=== PATIENT | female | born 1995 | race Hispanic/Latino ===

== ENCOUNTER 2018-11-02 22:50 | Emergency (ER) | payer OTHER ==
[~2018-11-02 22:50] MED LIST: ACET1TAB12 PO; DOCU240C80 PO; IBUP-2077 PO; PREN1TAB26 PO
[2018-11-02] MEDS ORDERED: IOHEXOL 350 MG/ML 100ML INFUS..BTL IV ONE (23:20)
[2018-11-03] MEDS ORDERED: ONDANSETRON HCL 4 MG/2 ML VIAL ONE (00:01)
[2018-11-03] MEDS ORDERED: SODIUM CHLORIDE 0.9% 1000ML 1,000 ML IV ONE (00:01)
[2018-11-03] MEDS ORDERED: MORPHINE SULFATE 4 MG/1ML SYG ONE ×2 (00:01→01:46)
[2018-11-03 00:10] LABS: BASOPHILS % (AUTO) 0.2 % (0.0-5.0); EOSINOPHILS % (AUTO) 0.7 % (0.0-8.0); HEMATOCRIT 40.8 % (36-48); LYMPHOCYTES % (AUTO) 8.7 % (21.0-51.0); MEAN CORPUSCULAR HEMOGLOBIN 29.5 pg (27.0-33.0); MEAN CORPUSCULAR HGB CONC 34.6 g/dL (32.0-36.0); MEAN CORPUSCULAR VOLUME 85.2 fL (79-99); MONOCYTES % (AUTO) 6.6 % (3.0-13.0); NEUTROPHILS % (AUTO) 83.8 % (40.0-77.0); PLATELET COUNT (AUTO) 280 K/uL (130-400); RED BLOOD CELL COUNT(AUTO) 4.78 MIL/uL (4.00-5.50); RED CELL DISTRIBUTION WIDTH 14.3 % (11.0-15.5); WHITE BLOOD COUNT (AUTO) 15.2 K/uL (4.8-10.8)
[2018-11-03 00:17] LABS: CREATININE 0.8 mg/dL (0.5-1.5); POTASSIUM 3.5 mmol/L (3.5-5.1)
[2018-11-03 00:27] LABS: ALBUMIN 4.1 g/dL (3.5-5.0); BILIRUBIN,TOTAL 0.4 mg/dL (0.2-1.0); TOTAL PROTEIN, SERUM 7.9 g/dL (6.0-8.3)
[2018-11-03] MEDS ORDERED: KETAMINE HCL 100 MG/ML 5ML VIAL IJ ONE (01:45)
[2018-11-03] MEDS ORDERED: LORAZEPAM 2 MG/ML 1 ML VIAL ONE (02:35)
== END 2018-11-03 03:50 | disposition home or self-care (01) ==
LOC: EDH 22:50
DX: S52.592A Other fractures of lower end of left radius, initial encounter for closed fracture (principal); S20.219A Contusion of unspecified front wall of thorax, initial encounter; Z72.0 Tobacco use; V49.49XA Driver injured in collision with other motor vehicles in traffic accident, initial encounter; Y93.89 Activity, other specified; Y92.89 Other specified places as the place of occurrence of the external cause; Y99.8 Other external cause status
CPT/HCPCS: 25605; 36415; 71260; 73090; 73100; 73130; 74177; 80053; 82550; 83690; 84484; 84702; 85025; 93005; 96374; 96375; 96376; 99152; 99153; 99285; J2060; J2270 ×2; J2405; J3490; J7030; Q9967

== ENCOUNTER 2019-02-24 20:43 | Emergency (ER) | payer SELFPAY ==
[2019-02-24 21:56] LABS: APPEARANCE,URINE Clear (CLEAR); BILIRUBIN,URINE Negative (NEGATIVE); COLOR,URINE Yellow (YELLOW); GLUCOSE, URINE (UA) Negative (NEGATIVE); KETONES,URINE Negative (NEGATIVE); LEUKOCYTE ESTERASE ,URINE Negative (NEGATIVE); NITRATE,URINE Negative (NEGATIVE); OCCULT BLOOD,URINE Negative (NEGATIVE); PROTEIN,URINE Trace mg/dL (NEGATIVE)
[2019-02-24 22:01] LABS: HCG,QUAL RESULT NEGATIVE (NEGATIVE)
[2019-02-24 22:06] LABS: BACTERIA,URINE Few /HPF (None Seen); RBC,URINE None Seen /HPF (0-1); SQUAMOUS EPITHELIAL CELL,UR 0-2 /HPF (0-2)
[2019-02-24 22:16] LABS: BASOPHILS % (AUTO) 0.5 % (0.0-5.0); EOSINOPHILS % (AUTO) 1.2 % (0.0-8.0); HEMATOCRIT 45.4 % (36-48); LYMPHOCYTES % (AUTO) 20.4 % (21.0-51.0); MEAN CORPUSCULAR HEMOGLOBIN 28.3 pg (27.0-33.0); MEAN CORPUSCULAR HGB CONC 34.4 g/dL (32.0-36.0); MEAN CORPUSCULAR VOLUME 82.1 fL (79-99); NEUTROPHILS % (AUTO) 69.9 % (40.0-77.0); PLATELET COUNT (AUTO) 246 K/uL (130-400); RED BLOOD CELL COUNT(AUTO) 5.53 MIL/uL (4.00-5.50); WHITE BLOOD COUNT (AUTO) 9.4 K/uL (4.8-10.8)
[2019-02-24 22:29] LABS: CREATININE 0.7 mg/dL (0.5-1.5); POTASSIUM 3.1 mmol/L (3.5-5.1)
[2019-02-24 22:34] LABS: ALBUMIN 3.2 g/dL (3.5-5.0); BILIRUBIN,TOTAL 0.3 mg/dL (0.2-1.0); TOTAL PROTEIN, SERUM 6.2 g/dL (6.0-8.3)
[2019-02-24] MEDS ORDERED: POTASSIUM CHLORIDE 20 MEQ ERTAB PO ONE (23:02)
== END 2019-02-24 23:20 | disposition home or self-care (01) ==
LOC: EDH 20:43
DX: R55 Syncope and collapse (principal); E86.0 Dehydration; R19.7 Diarrhea, unspecified; Z72.0 Tobacco use; Z98.890 Other specified postprocedural states
CPT/HCPCS: 36415; 80053; 81001; 81025; 85025; 87804; 93005; 96360

== ENCOUNTER 2020-05-06 01:00 | Emergency (ER) | payer MEDICAID, OTHER ==
[2020-05-06 01:54] LABS: BASOPHILS % (AUTO) 0.3 % (0.0-5.0); EOSINOPHILS % (AUTO) 1.4 % (0.0-8.0); HEMATOCRIT 39.5 % (36-48); LYMPHOCYTES % (AUTO) 28.8 % (21.0-51.0); MEAN CORPUSCULAR HGB CONC 34.2 g/dL (32.0-36.0); MEAN CORPUSCULAR VOLUME 84.8 fL (79-99); MONOCYTES % (AUTO) 6.5 % (3.0-13.0); NEUTROPHILS % (AUTO) 62.7 % (40.0-77.0); PLATELET COUNT (AUTO) 253 K/uL (130-400); RED BLOOD CELL COUNT(AUTO) 4.66 MIL/uL (4.00-5.50); RED CELL DISTRIBUTION WIDTH 13.5 % (11.0-15.5); WHITE BLOOD COUNT (AUTO) 11.6 K/uL (4.8-10.8)
[2020-05-06 02:02] LABS: CREATININE 0.7 mg/dL (0.5-1.5); POTASSIUM 3.4 mmol/L (3.5-5.1)
[2020-05-06 02:04] LABS: APPEARANCE,URINE Clear (CLEAR); BILIRUBIN,URINE Negative (NEGATIVE); COLOR,URINE Yellow (YELLOW); GLUCOSE, URINE (UA) Negative (NEGATIVE); KETONES,URINE Negative (NEGATIVE); LEUKOCYTE ESTERASE ,URINE Negative (NEGATIVE); NITRATE,URINE Negative (NEGATIVE); OCCULT BLOOD,URINE Large (NEGATIVE); PH,URINE 6.5 (5.0-8.0); PROTEIN,URINE Negative (NEGATIVE)
[2020-05-06 02:13] LABS: INR 0.94 (0.85-1.15); PARTIAL THROMBOPLASTIN TIME 26.6 SEC (26.3-35.5); PROTHROMBIN TIME 10.2 SEC (9.6-11.6)
[2020-05-06 02:17] LABS: BACTERIA,URINE None Seen /HPF (None Seen); CALCIUM OXALATE CRYSTALS,UR Moderate /LPF (None Seen); MUCUS,URINE Few LPF (None Seen); SQUAMOUS EPITHELIAL CELL,UR Few /HPF (0-2); WBC,URINE None Seen /HPF (0-1)
[2020-05-06] MEDS ORDERED: ONDANSETRON HCL 4 MG/2 ML VIAL ONE (03:19)
[2020-05-06] MEDS ORDERED: METOCLOPRAMIDE 10 MG/2 ML VIAL ONE (03:19)
[2020-05-07] MEDS ORDERED: SERT50TA12 PO ×2 (14:57)
== END 2020-05-06 03:35 | disposition home or self-care (01) ==
LOC: EDH 01:00
DX: O20.0 Threatened abortion (principal); O20.9 Hemorrhage in early pregnancy, unspecified; Z98.890 Other specified postprocedural states; Z3A.09 9 weeks gestation of pregnancy
CPT/HCPCS: 36415; 76801; 80048; 81001; 84702; 85025; 85610; 85730; 86900; 86901; 96374; 96375; 99284; J2405; J2765

== ENCOUNTER 2020-05-07 09:16 | Inpatient (IN) | payer MEDICAID, OTHER ==
[~2020-05-07] VITALS: Ht 170.2 cm; Wt 103.0 kg
[2020-05-07 07:34] VITALS: BP 102/53
[2020-05-07 10:46] LABS: BASOPHILS % (AUTO) 0.3 % (0.0-5.0); EOSINOPHILS % (AUTO) 0.6 % (0.0-8.0); HEMATOCRIT 38.2 % (36-48); LYMPHOCYTES % (AUTO) 14.6 % (21.0-51.0); MEAN CORPUSCULAR HEMOGLOBIN 29.3 pg (27.0-33.0); MEAN CORPUSCULAR HGB CONC 34.3 g/dL (32.0-36.0); MEAN CORPUSCULAR VOLUME 85.5 fL (79-99); MONOCYTES % (AUTO) 4.6 % (3.0-13.0); NEUTROPHILS % (AUTO) 79.5 % (40.0-77.0); PLATELET COUNT (AUTO) 236 K/uL (130-400); RED BLOOD CELL COUNT(AUTO) 4.47 MIL/uL (4.00-5.50); RED CELL DISTRIBUTION WIDTH 13.6 % (11.0-15.5); WHITE BLOOD COUNT (AUTO) 11.3 K/uL (4.8-10.8)
[2020-05-07] MEDS ORDERED: MORPHINE SULFATE 2 MG/ML 1ML SYG ONE (11:02)
[2020-05-07] MEDS ORDERED: ONDANSETRON HCL 4 MG/2 ML VIAL ONE (11:02)
[2020-05-07 11:08] LABS: CREATININE 0.8 mg/dL (0.5-1.5); POTASSIUM 3.6 mmol/L (3.5-5.1)
[2020-05-07 11:24] LABS: APPEARANCE,URINE Clear (CLEAR); BILIRUBIN,URINE Negative (NEGATIVE); COLOR,URINE Dark Yellow (YELLOW); GLUCOSE, URINE (UA) Negative (NEGATIVE); KETONES,URINE Trace mg/dL (NEGATIVE); LEUKOCYTE ESTERASE ,URINE Trace (NEGATIVE); NITRATE,URINE Negative (NEGATIVE); OCCULT BLOOD,URINE Negative (NEGATIVE); PROTEIN,URINE Negative (NEGATIVE)
[2020-05-07 11:42] LABS: BACTERIA,URINE Rare /HPF (None Seen); WBC,URINE 0-1 /HPF (0-1)
[2020-05-07 11:43] LABS: CALCIUM OXALATE CRYSTALS,UR Few /LPF (None Seen); RBC,URINE 0-1 /HPF (0-1)
[2020-05-07] MEDS ORDERED: DEXTROSE 5 % AND 0.9 % NACL 1,000 ML IV SCH (13:00)
[2020-05-07 14:27] VITALS: BP 129/78
[2020-05-07] MEDS ORDERED: SERT50TA12 PO ×2 (14:57)
--- NOTE | 2020-05-07 15:05 | NUR ---
CM NOTE/IA MEET WITH PATIENT IN ROOM. 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 SELF PACKETS AND GOOD RX COUPONS GIVEN TO PATIENT, PATIENT VERBALIZED UNDERSTANDING. Addendum: 05/07/20 at 1508 by JOHN MCKEON RN CM Amended: Links added.
[2020-05-07 16:14] VITALS: BP 105/63
[2020-05-07] MEDS ORDERED: PROMETHAZINE HCL 25 MG/ML 1ML AMPULE IM PRN (16:15)
[2020-05-07] MEDS ORDERED: MEPERIDINE-PF 50 MG/ML SYG IM PRN (16:15)
[2020-05-07] MEDS: DEXTROSE 5 %-0.45 % NACL 1,000 ML IV SCH (16:16)
[2020-05-07 18:52] LABS: HEMATOCRIT 35.5 % (36-48)
[2020-05-07 19:18] VITALS: BP 98/48
--- NOTE | 2020-05-07 19:30 | NUR ---
NPO AFTER MIDNITE, PT INSTRUCTED Addendum: 05/08/20 at 0438 by NIA THOMAS LVN Amended: Links added.
[2020-05-08] VITALS (21 sets, daily range): BP systolic 101–132; BP diastolic 50–79
[2020-05-08] MEDS: DEXTROSE 5 %-0.45 % NACL 1,000 ML IV SCH (03:30)
--- NOTE | 2020-05-08 08:20 | NUR ---
DR. ESCALANTE AT BEDSIDE TO ASSESS AND TALK TO PT. POC DISCUSSED FOR SURGERY. ORDERS RECEIVED FOR D&C, DIAGNOSTIC LAPAROSCOPY, AND POSSIBLE SALPINGECTOMY.
[2020-05-08] MEDS ORDERED: PROPOFOL 10 MG/ML 20ML VIAL IV ONE (10:24)
[2020-05-08] MEDS ORDERED: SUCCINYLCHOLINE CHLORIDE 20 MG/ML 10 ML VIAL ONE (10:24)
[2020-05-08] MEDS ORDERED: FENTANYL CITRATE PF 50 MCG/1 ML 2ML VIAL ONE ×2 (10:24→12:30)
[2020-05-08] MEDS ORDERED: LIDOCAINE PF 2% 5ML ABBOJECT ONE (10:24)
[2020-05-08] MEDS ORDERED: ROCURONIUM 10MG/1ML SYR 10 MG/ML ML ONE (10:24)
--- NOTE | 2020-05-08 10:25 | NUR ---
PT TAKEN BY BED TO HOLDING AREA FOR D&C, DX LAPAROSCOPY, POSSIBLE SALPINGECTOMY.
[2020-05-08] MEDS ORDERED: LACTATED RINGERS 1000ML 1,000 ML IV ONE (10:28)
[2020-05-08] MEDS ORDERED: BUPIVACAINE/PF 0.25% 30ML VIAL IJ ONE (11:34)
[2020-05-08] MEDS ORDERED: MIDAZOLAM HCL 1 MG/ML 2ML VIAL ONE (12:07)
[2020-05-08] MEDS ORDERED: EPHEDRINE SULFATE 50 MG/ML AMPULE ONE (12:34)
[2020-05-08] MEDS ORDERED: GLYCOPYRROLATE 1 MG/5 ML SYRINGE ONE (13:05)
[2020-05-08] MEDS ORDERED: PROMETHAZINE HCL 25 MG/ML 1ML AMPULE IM PRN (15:00)
[2020-05-08] MEDS ORDERED: DOCUSATE SODIUM 100 MG CAP PO PRN (15:00)
[2020-05-08] MEDS ORDERED: ACETAMINOPHEN-CODEINE 300/30MG TAB PO PRN (15:00)
[2020-05-08] MEDS ORDERED: HYDROCODONE/ACETAMINOPHEN 5/325 MG TAB PO PRN (15:00)
[2020-05-08] MEDS ORDERED: SIMETHICONE 80 MG TAB.CHEW PO PRN (15:00)
[2020-05-08] MEDS ORDERED: IBUPROFEN 600 MG TABLET PO PRN (15:00)
[2020-05-08] MEDS ORDERED: BISACODYL 10 MG SUPP.RECT RC PRN (15:00)
[2020-05-08] MEDS ORDERED: ACETAMINOPHEN-CODEINE 300/30MG TAB ONE (15:06)
--- NOTE | 2020-05-08 18:25 | NUR ---
DISCHARGE PT LEFT UNIT VIA WHEELCHAIR, ACCOMPANIED BY MOTHER. DENIED PAIN AND HAD NO COMPLAINTS. TRANSPORTED BY PERSONAL VEHICLE.
--- NOTE | 2020-05-09 13:33 | NUR ---
HX of THC 2 months ago Pt was admitted for ectopic . Pt reports hx hx of THC abuse, last used 2 months ago. No UDs was done on pt on admission. Pt reports hx of anxiety, depression and post depression that [place] [address] Ocampo and she was on Zoloft until March 2020 when pt stopped taking. Pt states that after of daughter she cried a lot and felt that she was not good enough to be a mother. These feeling lasted about 1 1/2 months and family support helped pt overcome these feeling. Pt states she has not seen Dr Ocampo in sometime. Pt reports she smoked THC occasionally after daughter was asleep, to help calm pt before sleep. Pt states she is aware there is a "stigma" for people that smoke THC, but this helps her. Pt reports that she lives in apt with her 5yro daughter. Pt works and is independent. BF is off and on, but he is involved with 5yro daughter and was aware that pt was . Pt's sister will be staying with pt after dc and with assist as needed
== END 2020-05-08 18:25 | disposition home or self-care (01) | DRG 779 ==
LOC: EDH 09:16 → OBSVTOIN 09:17 → EDHIP 09:17 → WSH 14:25
PROVIDERS: ADMIT Obstetrics & Gynecology; ATTEND Obstetrics & Gynecology
PROC: 0UB54ZZ Excision of Right Fallopian Tube, Percutaneous Endoscopic Approach (ICD-10-PCS; principal; 2020-05-08 12:00)
PROC: 10T24ZZ Resection of Products of Conception, Ectopic, Percutaneous Endoscopic Approach (ICD-10-PCS; 2020-05-08 12:00)
DX: O03.9 Complete or unspecified spontaneous abortion without complication (principal); O00.101 Right tubal pregnancy without intrauterine pregnancy; K66.0 Peritoneal adhesions (postprocedural) (postinfection); Z98.891 History of uterine scar from previous surgery
CPT/HCPCS: 36415; 76801; 80048; 81001; 84702; 85014; 85018; 85025; 85610; 85730; 86850; 86900; 86901; 88305; 88341; 88342; 96374; 96375; A4351; G0378; J0330; J2001; J2175; J2250; J2405; J2550; J2704; J2765; J3010; J3490; J7030; J7042; J7120

== ENCOUNTER → 2022-01-13 | Emergency (ER) | payer MEDICAID ==
[~2022-01-13] VITALS: Ht 170.2 cm; Wt 113.4 kg
[~2022-01-13] MED LIST changes: -ACET1TAB12 PO; -DOCU240C80 PO; -IBUP-2077 PO; -PREN1TAB26 PO; +SERT-439 PO
[2022-01-13 22:16] VITALS: BP 130/75
[2022-01-13 22:37] LABS: APPEARANCE,URINE CLEAR (CLEAR); BILIRUBIN,URINE NEGATIVE (NEGATIVE); COLOR,URINE YELLOW (YELLOW); GLUCOSE, URINE (UA) NEGATIVE (NEGATIVE); KETONES,URINE NEGATIVE (NEGATIVE); LEUKOCYTE ESTERASE ,URINE TRACE (NEGATIVE); NITRATE,URINE NEGATIVE (NEGATIVE); OCCULT BLOOD,URINE SMALL (NEGATIVE); PH,URINE 6.5 (5.0-8.0); PROTEIN,URINE NEGATIVE (NEGATIVE)
[2022-01-13 22:45] LABS: HCG,QUAL RESULT NEGATIVE (NEGATIVE)
[2022-01-13 22:57] LABS: BACTERIA,URINE None Seen /HPF (None Seen); RBC,URINE 0-1 /HPF (0-1); SQUAMOUS EPITHELIAL CELL,UR Rare /HPF (0-2)
== END | disposition left against medical advice (07) ==
LOC: EDH 22:15
DX: R50.9 Fever, unspecified (principal); Z20.822 Contact with and (suspected) exposure to COVID-19; Z53.21 Procedure and treatment not carried out due to patient leaving prior to being seen by health care provider
CPT/HCPCS: 81001; 81025; 87635; 87804 ×2; C9803

== ENCOUNTER 2022-04-21 09:46 | Emergency (ER) | payer MEDICAID ==
[~2022-04-21] VITALS: Ht 170.2 cm; Wt 117.9 kg
[2022-04-21] MEDS ORDERED: 0.9%NACL 1000ML 1,000 ML IV ONE (10:00)
[2022-04-21 10:32] LABS: BASOPHILS % (AUTO) 0.1 % (0.0-5.0); HEMATOCRIT 39.1 % (36-48); LYMPHOCYTES % (AUTO) 8.8 % (21.0-51.0); MEAN CORPUSCULAR HEMOGLOBIN 27.8 pg (27.0-33.0); MEAN CORPUSCULAR HGB CONC 33.2 g/dL (32.0-36.0); MEAN CORPUSCULAR VOLUME 83.7 fL (79-99); NEUTROPHILS % (AUTO) 82.6 % (40.0-77.0); PLATELET COUNT (AUTO) 207 K/uL (130-400); RED BLOOD CELL COUNT(AUTO) 4.67 MIL/uL (4.00-5.50); WHITE BLOOD COUNT (AUTO) 15.8 K/uL (4.8-10.8)
[2022-04-21 10:36] LABS: APPEARANCE,URINE Cloudy (CLEAR); BILIRUBIN,URINE Small (NEGATIVE); COLOR,URINE Dark Yellow (YELLOW); GLUCOSE, URINE (UA) Negative (NEGATIVE); KETONES,URINE Trace mg/dL (NEGATIVE); LEUKOCYTE ESTERASE ,URINE Moderate (NEGATIVE); NITRATE,URINE Positive (NEGATIVE); OCCULT BLOOD,URINE Small (NEGATIVE); PH,URINE 6.5 (5.0-8.0); PROTEIN,URINE POS 1+ mg/dL (NEGATIVE)
[2022-04-21 10:42] LABS: CREATININE 0.8 mg/dL (0.5-1.5); POTASSIUM 3.4 mmol/L (3.5-5.1)
[2022-04-21 10:46] LABS: ALBUMIN 3.7 g/dL (3.5-5.0); BACTERIA,URINE Moderate /HPF (None Seen); BILIRUBIN,TOTAL 0.7 mg/dL (0.2-1.0); RBC,URINE 0-1 /HPF (0-1); SQUAMOUS EPITHELIAL CELL,UR Rare /HPF (0-2); TOTAL PROTEIN, SERUM 7.7 g/dL (6.0-8.3)
[2022-04-21] MEDS ORDERED: ZOSYN 3.375GM +NS 50ML IV STA (10:47)
[2022-04-21] MEDS ORDERED: POTASSIUM BICARB/CIT AC 25 MEQ TABLET.EFF PO ONE (11:00)
[2022-04-21 11:15] VITALS: BP 159/89
[2022-04-21] MEDS ORDERED: CEPH500B PO (11:24)
== END 2022-04-21 11:34 | disposition home or self-care (01) ==
LOC: EDH 09:46
DX: N12 Tubulo-interstitial nephritis, not specified as acute or chronic (principal); Z20.822 Contact with and (suspected) exposure to COVID-19
CPT/HCPCS: 36415; 80053; 81001; 83690; 85025; 87077; 87088; 87186; 87507; 87635; 96365; 99284; C9803; J2543